=== PATIENT | male | born 1995 | race Two or more races ===

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

== ENCOUNTER 2017-07-25 14:02 | Emergency (ER) | payer SELFPAY ==
[2017-07-25] MEDS: LIDOCAINE WITH 8.4% SOD BICARB 3 ML DISP.SYRIN. INJ (14:39)
[2017-07-25] MEDS: HYDROcodone/APAP 5/325MG 1 TAB TABLET PO (15:17)
== END 2017-07-25 15:20 | disposition home or self-care (01) ==
LOC: ER 14:02
DX: L05.91 Pilonidal cyst without abscess (principal)
CPT/HCPCS: 10080; 99284-25

== ENCOUNTER 2017-12-29 12:06 | Emergency (ER) | payer SELFPAY ==
[~2017-12-29 12:06] MED LIST: CEPH500T PO; HYDR-971 PO; IBUP-1060 PO; SULF1TAB24 PO; TRAM50TA PO
[2017-12-29 13:21] VITALS: BP 129/77
== END 2017-12-29 13:39 | disposition left against medical advice (07) ==
LOC: ER 12:06
DX: L02.212 Cutaneous abscess of back [any part, except buttock and flank] (principal); Z53.21 Procedure and treatment not carried out due to patient leaving prior to being seen by health care provider

== ENCOUNTER 2020-11-25 22:37 | Emergency (ER) | payer SELFPAY ==
[~2020-11-25] VITALS: Ht 167.6 cm; Wt 77.3 kg
[~2020-11-25 22:37] MED LIST changes: +HYDR-3164 PO; -HYDR-971 PO
[2020-11-25 23:00] VITALS: BP 111/56
[2020-11-25] MEDS ORDERED: AMOX1TAB61 PO (23:10)
--- NOTE | 2020-11-25 23:11 | PHYS DOC ---
Past Medical History Past Medical History: Other Additional Past Medical Histor: PILONIDAL CYSTS,MULTIPLE I&D'S Past Surgical History: No Surgical History Smoking Status: Current Every Day Smoker Alcohol Use: None Drug Use: None General Adult EDM: Chief Complaint: SKIN RASH/ABSCESS HPI: HPI: Patient is a 25 year old MALE presents for evaluation of "bump" on back. States ongoing x a few weeks. Exam consistent with pilonidal cyst. Discussed treatment with I/D and antibiotic. Patient fevers antibiotic treatment at this time. Patient to be charged home with Augmentin. Patient advised to return to the ER if symptoms persist get worse or any new concerning symptoms arise. Review of Systems: Review of Systems: Constitutional: Denies fever or chills. [] Eyes: Denies change in visual acuity. [] HENT: Denies nasal congestion or sore throat. [] Respiratory: Denies cough or shortness of breath. [] Cardiovascular: Denies chest pain or edema. [] GI: Denies abdominal pain, nausea, vomiting, bloody stools or diarrhea. [] : Denies dysuria. [] Musculoskeletal: Denies back pain or joint pain. [] Integument: Denies rash. [abscess] Neurologic: Denies headache, focal weakness or sensory changes. [] Endocrine: Denies polyuria or polydipsia. [] Lymphatic: Denies swollen glands. [] Psychiatric: Denies depression or anxiety. [] Heart Score: C/O Chest Pain: N/A Risk Factors: Risk Factors: DM, Current or recent (<one month) smoker, HTN, HLP, family history of CAD, obesity. Risk Scores: Score 0 - 3: 2.5% MACE over next 6 weeks - Discharge Home Score 4 - 6: 20.3% MACE over next 6 weeks - Admit for Clinical Observation Score 7 - 10: 72.7% MACE over next 6 weeks - Early Invasive Strategies Allergies: Allergies: Allergies Coded Allergies Type Severity Reaction Last Updated Verified No Known Drug Allergies 11/23/16 No Physical Exam: PE: Constitutional: Well developed, well nourished, no acute distress, non-toxic appearance. [] HENT: Normocephalic, atraumatic, bilateral external ears normal, oropharynx moist, no oral exudates, nose normal. [] Eyes: PERRLA, EOMI, conjunctiva normal, no discharge. [] Neck: Normal range of motion, no tenderness, supple, no stridor. [] Cardiovascular:Heart rate regular rhythm, no murmur [] Lungs & Thorax: Bilateral breath sounds clear to auscultation [] Abdomen: Bowel sounds normal, soft, no tenderness, no masses, no pulsatile masses. [] Skin: Warm, dry, no erythema, no rash. [] Back: No tenderness, no CVA tenderness. [] Extremities: No tenderness, no cyanosis, no clubbing, ROM intact, no edema. [] Neurologic: Alert and oriented X 3, normal motor function, normal sensory function, no focal deficits noted. [] Psychologic: Affect normal, judgement normal, mood normal. [] EKG: EKG: [] Radiology/Procedures: Radiology/Procedures: [] Course & Med Decision Making: Course & Med Decision Making Pertinent Labs and Imaging studies reviewed. (See chart for details) [] Dragon Disclaimer: Dragon Disclaimer: This electronic medical record was generated, in whole or in part, using a voice recognition dictation system. Departure Departure Impression: Primary Impression: Pilonidal cyst Disposition: HOME / SELF CARE / HOMELESS Condition: STABLE Referrals: NO PCP (PCP) Patient Instructions: Pilonidal Cyst Scripts Amoxicillin/Potassium Clav (AUGMENTIN 875-125 TABLET) 1 Each Tablet 1 TAB PO BID for 10 Days, #20 TAB 0 Refills Prov: ALEXA LOUIS DO 11/25/20 ALEXA LOUIS DO Nov 25, 2020 23:11
== END 2020-11-25 23:14 | disposition home or self-care (01) ==
LOC: ER 22:37
DX: L05.91 Pilonidal cyst without abscess (principal); F17.200 Nicotine dependence, unspecified, uncomplicated
CPT/HCPCS: 99283

== ENCOUNTER 2021-03-25 11:00 | Emergency (ER) | payer SELFPAY ==
[~2021-03-25] VITALS: Ht 167.6 cm; Wt 77.2 kg
[~2021-03-25 11:00] MED LIST changes: +AMOX1TAB61 PO
[2021-03-25 11:19] VITALS: BP 134/61
[2021-03-25] MEDS ORDERED: CEPH500C PO (11:48)
--- NOTE | 2021-03-25 11:48 | PHYS DOC ---
Past Medical History Past Medical History: Other Additional Past Medical Histor: PILONIDAL CYSTS,MULTIPLE I&D'S Past Surgical History: No Surgical History Smoking Status: Former Smoker Alcohol Use: None Drug Use: None General Adult EDM: Chief Complaint: ABSCESS HPI: HPI: Patient is a 26 year old male who presents with 1 week of Cyst on his mid lower back that is approximately 2 inches horizontally, hard and drinking scant purulent fluid. Review of Systems: Review of Systems: Constitutional: Denies fever or chills. [] Eyes: Denies change in visual acuity. [] HENT: Denies nasal congestion or sore throat. [] Respiratory: Denies cough or shortness of breath. [] Cardiovascular: Denies chest pain or edema. [] GI: Denies abdominal pain, nausea, vomiting, bloody stools or diarrhea. [] : Denies dysuria. [] Musculoskeletal: + back pain due to abscess or joint pain. [] Integument: Denies rash. Lower back abscess +[] Neurologic: Denies headache, focal weakness or sensory changes. [] Endocrine: Denies polyuria or polydipsia. [] Lymphatic: Denies swollen glands. [] Psychiatric: Denies depression or anxiety. [] Heart Score: C/O Chest Pain: No Allergies: Allergies: Allergies Coded Allergies Type Severity Reaction Last Updated Verified No Known Drug Allergies 11/23/16 No Physical Exam: PE: Constitutional: Well developed, well nourished, no acute distress, non-toxic appearance. [] HENT: Normocephalic, atraumatic, bilateral external ears normal, oropharynx moist, no oral exudates, nose normal. [] Eyes: PERRLA, EOMI, conjunctiva normal, no discharge. [] Neck: Normal range of motion, no tenderness, supple, no stridor. [] Cardiovascular:Heart rate regular rhythm, no murmur [] Lungs & Thorax: Bilateral breath sounds clear to auscultation [] Abdomen: Bowel sounds normal, soft, no tenderness, no masses, no pulsatile masses. [] Skin: Warm, dry, no erythema, no rash. Mid lower back approximately 2 inch vertical hard, draining abscess without cellulitis [] Back: No tenderness, no CVA tenderness. [] Extremities: No tenderness, no cyanosis, no clubbing, ROM intact, no edema. [] Neurologic: Alert and oriented X 3, normal motor function, normal sensory function, no focal deficits noted. [] Psychologic: Affect normal, judgement normal, mood normal. [] Current Patient Data: Vital Signs: Vital Signs Date Time Temp Pulse Resp B/P (MAP) Pulse Ox O2 Delivery O2 Flow Rate FiO2 03/25/21 11:19 98.8 75 16 134/61 (85) 100 Room Air 98.8 EKG: EKG: [] Radiology/Procedures: Radiology/Procedures: [] Course & Med Decision Making: Course & Med Decision Making Pertinent Labs and Imaging studies reviewed. (See chart for details) See HPI. Alert and oriented x4. Ambulatory steady gait. Speaks in full clear sentences. 2 inch vertically hard, draining, noncellulitic abscess. It is tender. Culture obtained. Patient be placed on antibiotics. Spoke to the ivan ent about surgical consult because of frequent I&D's and antibiotic use for the same abscess. Afebrile. Nonseptic appearing. [] Yarelis Disclaimer: Yarelis Disclaimer: This electronic medical record was generated, in whole or in part, using a voice recognition dictation system. Departure Departure Impression: Primary Impression: Abscess Disposition: HOME / SELF CARE / HOMELESS Condition: STABLE Referrals: NO PCP (PCP) Patient Instructions: Pilonidal Cyst Additional Instructions: Follow-up with a primary care provider or surgeon. Take antibiotic as prescribed and with food. Use heat compress and ibuprofen to help with pain. Scripts Cephalexin (KEFLEX) 500 Mg Capsule 1 CAP PO TID, #30 CAP Prov: ISAEL HADLEY APRN 03/25/21 ISAEL HADLEY APRN Mar 25, 2021 11:48
== END 2021-03-25 11:59 | disposition home or self-care (01) ==
LOC: ER 11:00
DX: L02.212 Cutaneous abscess of back [any part, except buttock and flank] (principal); Z87.891 Personal history of nicotine dependence
CPT/HCPCS: 99283